=== PATIENT | male | born 1960 | race Caucasian/White ===

== ENCOUNTER 2020-03-27 06:23 | Inpatient (IN) ==
[2020-03-27] MEDS ORDERED: Gabapentin 300 MG CAPSULE PO ONE (06:45)
[2020-03-27] MEDS ORDERED: Acetaminophen IV 1,000 MG/100 ML INFUS..BTL IVPB ONE (06:45)
[2020-03-27] MEDS ORDERED: Albuterol 2.5 MG/3 ML NEBULIZER IH ONE (06:56)
[2020-03-27] MEDS ORDERED: *HR* Promethazine 25 MG/ML VIAL IVP PRN (06:56)
[2020-03-27] MEDS ORDERED: Ondansetron 4 MG/2 ML VIAL IVP PRN (06:56)
[2020-03-27] MEDS ORDERED: Ketorolac 15 MG/ML VIAL IVP ONE (06:56)
[2020-03-27] MEDS ORDERED: *HR* OxyCODONE Immed Rel 5 MG TABLET PO PRN (06:56)
[2020-03-27] MEDS ORDERED: *HR* HYDROmorphone PF 0.5 MG/0.5 ML SYRINGE IVP PRN (06:56)
[2020-03-27] MEDS ORDERED: Albuterol 2.5 MG/3 ML NEBULIZER IH PRN (06:57)
[2020-03-27] MEDS ORDERED: Lidocaine -MPF 2% 2 ML VIAL ONE (06:58)
[2020-03-27] MEDS ORDERED: Dexamethasone 4 MG/ML VIAL ONE (06:58)
[2020-03-27] MEDS ORDERED: *HR* Rocuronium Bromide 50 MG/5 ML VIAL ONE (06:58)
[2020-03-27] MEDS ORDERED: *HR* Propofol 200 MG/20 ML VIAL IVP ONE ×3 (06:58→09:04)
[2020-03-27] MEDS ORDERED: Ondansetron 4 MG/2 ML VIAL ONE (06:58)
[2020-03-27] MEDS ORDERED: *HR* FentaNYL (PF) 100 MCG/2 ML VIAL ONE (06:58)
[2020-03-27] MEDS ORDERED: Ringers Solution, Lactated 1,000 ML IVC SCH (07:15)
[2020-03-27] MEDS ORDERED: CeFAZolin Syr 2,000MG/20 ML 2,000 MG/20 ML SYRINGE IVPB ONE (07:21)
[2020-03-27] MEDS ORDERED: *HR* HYDROMORPHONE 2 MG/ML VIAL ONE (08:08)
[2020-03-27] MEDS ORDERED: Naloxone 0.4 MG/ML INJ ONE (09:24)
[2020-03-27] MEDS ORDERED: Naloxone 0.4 MG/ML INJ IVP PRN (10:14)
[2020-03-27] MEDS: Ketorolac 15 MG/ML VIAL IVP SCH ×3 (10:43→23:44)
[2020-03-27] MEDS: *HR* HYDROcodone/Acet 5/325 mg TABLET PO PRN ×3 (10:43→22:04)
[2020-03-27] MEDS: 0.9 % Sodium Chloride 1,000 ML IVC SCH ×2 (10:43→22:05)
[2020-03-27] MEDS: Ipratropium/Albuterol Neb 3 ML IH SCH ×3 (11:39→20:55)
[2020-03-27] MEDS: Gabapentin 300 MG CAPSULE PO SCH ×2 (14:08→21:06)
[2020-03-27] MEDS: *HR* Heparin 5,000 UNIT/ML VIAL SQ SCH ×2 (14:08→21:07)
[2020-03-27] MEDS: Budesonide/Formoterol 160/4.5 1 PUFF INH IH SCH (20:55)
[2020-03-27] MEDS: Famotidine 20 MG TABLET PO SCH (21:06)
[2020-03-27] MEDS: Sennosides/Docusate Sodium TABLET PO SCH (21:07)
[2020-03-28] MEDS: Ipratropium/Albuterol Neb 3 ML IH SCH ×5 (00:14→16:05)
[2020-03-28] MEDS: Ketorolac 15 MG/ML VIAL IVP SCH ×2 (05:43→10:51)
[2020-03-28] MEDS: *HR* Heparin 5,000 UNIT/ML VIAL SQ SCH ×2 (05:44→13:43)
[2020-03-28 06:19] LABS: Hematocrit 42.2 % (37.5-50.1); Hemoglobin 13.2 g/dL (12.9-16.9); Mean Corpuscular HGB Conc 31.3 g/dL (31.6-35.5); Mean Corpuscular Hemoglobin 31.9 pg (28.0-33.3); Mean Corpuscular Volume 101.9 fL (83.0-100.0); Mean Platelet Volume 10.2 fL (9.4-12.4); Platelet Count 279 K/mcL (140-400); Red Blood Count 4.14 M/mcL (4.19-5.50); Red Cell Distribution Width 12.8 % (11.5-14.5)
[2020-03-28 06:40] LABS: % Iron Saturation 16 % (20-55); BUN/Creatinine Ratio 13 (6-26); Blood Urea Nitrogen 13 mg/dL (8-23); Calcium 8.1 mg/dL (8.6-10.3); Carbon Dioxide 23 mEq/L (23-29); Chloride 105 mEq/L (98-107); Glucose 168 mg/dL (70-105); Iron 48 mcg/dL (65-175); Magnesium 1.8 mg/dL (1.6-2.6); Osmolality,Calculated 286 (280-300); Potassium 4.2 mEq/L (3.5-5.1); Sodium 136 mEq/L (136-145); Transferrin 220 mg/dL (203-362); eGFR For African Americans > 60 (> 60); eGFR For Non-African Americans > 60 (> 60)
[2020-03-28] MEDS: Budesonide/Formoterol 160/4.5 1 PUFF INH IH SCH (07:38)
[2020-03-28] MEDS ORDERED: TIOTROPIUM BROMIDE IH SCH (09:00)
[2020-03-28] MEDS: Sennosides/Docusate Sodium TABLET PO SCH (09:29)
[2020-03-28] MEDS: Gabapentin 300 MG CAPSULE PO SCH ×2 (09:29→16:25)
[2020-03-28] MEDS: Famotidine 20 MG TABLET PO SCH (09:29)
[2020-03-28] MEDS ORDERED: Furosemide 20 MG/2 ML VIAL IVP ONE (10:41)
[2020-03-28] MEDS ORDERED: Iron Sucrose Complex 400 MG in 0.9 % Sodium Chloride 250 ML IVPB ONE (10:41)
[2020-03-28 11:19] VITALS: BP 138/86
== END 2020-03-28 16:29 | disposition home or self-care (01) | DRG 165 ==
LOC: SAMDAY 06:23 → 2NNU 10:26
PROVIDERS: ADMIT Thoracic Surgery (Cardiothoracic Vascular Surgery); ATTEND Thoracic Surgery (Cardiothoracic Vascular Surgery)